=== PATIENT | female | born 1975 | race Caucasian/White ===

== ENCOUNTER 2023-11-27 00:31 | Emergency (ER) | payer OTHER, SELFPAY ==
[2023-11-27] MEDS ORDERED: Acetaminophen 500 MG TAB ONE (02:17)
== END 2023-11-27 03:44 | disposition home or self-care (01) ==
LOC: CSHERS 00:31
DX: U07.1 COVID-19 (principal); Z55.6 Problems related to health literacy
CPT/HCPCS: 99283